=== PATIENT | female | born 1965 | race Caucasian/White ===

== ENCOUNTER 2017-08-29 07:47 | Day surgery (SDC) | payer OTHER ==
[~2017-08-29 07:47] MED LIST: BACTRIM DS TABL1 TAB PO; CLONAZEPAM0.5 MG PO; KETO10TA2 PO; LEVSIN/SL0.125 MG PO; PERCOCET 5-3251 EACH PO; PERCOCET 5/3251 TAB PO; ZYRTEC10 MG PO
== END 2017-08-29 12:00 | disposition home or self-care (01) ==
LOC: AMB-ENDOS 07:47
DX: K59.09 Other constipation (principal); Z08 Encounter for follow-up examination after completed treatment for malignant neoplasm

== ENCOUNTER 2018-09-18 08:45 | Day surgery (SDC) | payer OTHER | END 2018-09-18 12:35 | disposition home or self-care (01) | LOC: AMB-ENDOS 08:45 → CIR.AMB 15:15 | DX: D12.8 Benign neoplasm of rectum (principal) ==